=== PATIENT | male | born 1960 | race African-American/Black ===

== ENCOUNTER 2019-01-25 10:13 | Emergency (ER) | payer OTHER ==
[~2019-01-25] VITALS: Ht 190.5 cm; Wt 81.6 kg
--- NOTE | 2019-01-25 10:14 | NUR ---
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 Called 911 d/t SOB. He is alert, oriented x3, calm and cooperative. Pt has hx of PTSD. Pt took muscle relaxants x 3 last night. Latest BS is 107mg/dL. Placed on bed and gown, son on bedside. Will continue to monitor.
--- NOTE | 2019-01-25 10:25 | NUR ---
ED Nurse Note: Pt hooked on honey grader and blender, VSS, no signs of any respiratory distress. Established IV line on LT AC with 20G. Blood specimen collected, sent to labs. Ready for x-ray. Will continue to monitor.
[2019-01-25 10:30] VITALS: BP 152/86
--- NOTE | 2019-01-25 10:30 | NUR ---
ED Nurse Note: X-Ray done. Pt still on stable condition. Started IV Hyration of 1liter NS, tolerated well.
--- NOTE | 2019-01-25 10:38 | Emergency Room Report ---
History of Present Illness General Chief Complaint: Dyspnea/Respdistress Source: Patient Present Illness HPI 58-year-old male history of polysubstance abuse methamphetamine, PCP history of PTSD presents with dyspnea that started just prior to arrival, patient was walking to the door, he felt short of breath for less than 30 seconds, resolved without any issues, no aggravating or alleviating factors severity was moderate , never had a stress test and never had a heart attack, no family history of cardiac disease no nausea no vomiting no diaphoresis patient presents for evaluation via EMS Allergies: Coded Allergies: No Known Allergies (Unverified , 01/25/19) Patient History Past Medical History: see triage record Social History: Reports: smoking, drug use - PCP amphetamines Reviewed Nursing Documentation: PMH: Agreed; PSxH: Agreed Nursing Documentation-PMH Past Medical History: No History, Except For Review of Systems All Other Systems: negative except mentioned in HPI Physical Exam Vital Signs Date Time Temp Pulse Resp B/P (MAP) Pulse Ox O2 Delivery O2 Flow Rate FiO2 01/25/19 10:10 97.0 97 15 158/106 (123) 98 Room Air Sp02 EP Interpretation: reviewed, normal General Appearance: well appearing, no apparent distress, alert, other - Currently playing with his child Head: normocephalic, atraumatic Eyes: bilateral eye PERRL, bilateral eye EOMI ENT: uvula midline, moist mucus membranes Neck: supple, thyroid normal, supple/symm/no masses Respiratory: lungs clear, no respiratory distress, no retraction, no accessory muscle use Cardiovascular #1: normal peripheral pulses, regular rate, rhythm, no edema, no gallop, no murmur Gastrointestinal: non tender, soft, no guarding, no rebound Musculoskeletal: normal inspection Neurologic: alert, oriented x3 Psychiatric: mood/affect normal Skin: no rash, warm/dry Medical Decision Making Diagnostic Impression: Primary Impression: Dyspnea Qualified Codes: R06.00 - Dyspnea, unspecified Additional Impression: Cocaine abuse ER Course 58-year-old male presents with atypical dyspnea, he had no chest pain or shortness of breath, he does endorse using drugs, differential diagnosis includes ACS, side effect of drug use, pneumonia Chest x-ray negative, troponin negative, EKG negative Patient has been asymptomatic in the ED playing with his kids Counseled patient about drug use, patient states he will stop using cocaine Disposition home with return precautions Laboratory Tests Test 01/25/19 10:36 01/25/19 10:50 White Blood Count 5.4 K/UL (4.8-10.8) Red Blood Count 4.90 M/UL (4.70-6.10) Hemoglobin 14.3 G/DL (14.2-18.0) Hematocrit 43.7 % (42.0-52.0) Mean Corpuscular Volume 89 FL (80-99) Mean Corpuscular Hemoglobin 29.3 PG (27.0-31.0) Mean Corpuscular Hemoglobin Concent 32.8 G/DL (32.0-36.0) Red Cell Distribution Width 11.8 % (11.6-14.8) Platelet Count 304 K/UL (150-450) Mean Platelet Volume 5.1 FL (6.5-10.1) L Neutrophils (%) (Auto) 47.8 % (45.0-75.0) Lymphocytes (%) (Auto) 39.9 % (20.0-45.0) Monocytes (%) (Auto) 9.4 % (1.0-10.0) Eosinophils (%) (Auto) 1.0 % (0.0-3.0) Basophils (%) (Auto) 1.9 % (0.0-2.0) Sodium Level 144 MMOL/L (136-145) Potassium Level 3.7 MMOL/L (3.5-5.1) Chloride Level 110 MMOL/L (98-107) H Carbon Dioxide Level 25 MMOL/L (21-32) Anion Gap 9 mmol/L (5-15) Blood Urea Nitrogen 19 mg/dL (7-18) H Creatinine 0.9 MG/DL (0.55-1.30) Estimate Glomerular Filtration Rate > 60 mL/min (>60) Glucose Level 91 MG/DL (74-106) Calcium Level 8.6 MG/DL (8.5-10.1) Total Bilirubin 0.4 MG/DL (0.2-1.0) Aspartate Amino Transferase (AST) 26 U/L (15-37) Alanine Aminotransferase (ALT) 29 U/L (12-78) Alkaline Phosphatase 84 U/L (46-116) Troponin I 0.000 ng/mL (0.000-0.056) Pro-B-Type Natriuretic Peptide 33 pg/mL (0-125) Total Protein 8.8 G/DL (6.4-8.2) H Albumin 4.2 G/DL (3.4-5.0) Globulin 4.6 g/dL Albumin/Globulin Ratio 0.9 (1.0-2.7) L Lipase 371 U/L (73-393) Urine Opiates Screen Negative (NEGATIVE) Urine Barbiturates Screen Negative (NEGATIVE) Phencyclidine (PCP) Screen Positive (NEGATIVE) H Urine Amphetamines Screen Negative (NEGATIVE) Urine Benzodiazepines Screen Negative (NEGATIVE) Urine Cocaine Screen Positive (NEGATIVE) H Urine Marijuana (THC) Screen Negative (NEGATIVE) EKG Diagnostic Results EKG Time: 10:08 EP Interpretation: NSR, rate 96, QTc 447, no acute ST elevations, normal axis, Rhythm Strip Diag. Results Rhythm Strip Time: 10:37 EP Interpretation: yes Rate: 88 Rhythm: NSR, no PVC's, no ectopy Chest X-Ray Diagnostic Results Chest X-Ray Diagnostic Results : Chest X-Ray Ordered: Yes # of Views/Limited/Complete: 1 View Indication: Shortness of Breath EP Interpretation: Yes Interpretation: no consolidation, no effusion, no pneumothorax, no acute cardiopulmonary disease Impression: No acute disease Electronically Signed by: Tony Carson MD Last Vital Signs Date Time Temp Pulse Resp B/P (MAP) Pulse Ox O2 Delivery O2 Flow Rate FiO2 01/25/19 10:10 97.0 97 15 158/106 (123) 98 Room Air Disposition: HOME, SELF-CARE Condition: Stable Referrals: [facility] [place] [facility] Patient Instructions: Shortness of Breath, [id number], Stimulant Use Disorder -Cocaine Additional Instructions: The patient was provided with discharge instructions, notified to follow-up with a primary care doctor and or specialist in the next 24-48 hours, and to return to the ED if they have worsening of their symptoms. Please note that this report is being documented using [employer] technology. This can lead to erroneous entry secondary to incorrect interpretation by the dictating instrument. PLEASE OBTAIN OUTPATIENT STRESS TEST FOLLOW-UP WITH Tony Fermin MD Jan 25, 2019 10:38
--- NOTE | 2019-01-25 10:50 | NUR ---
ED Nurse Note: Pt able to urinate. Urine speciment obtained, sent to labs.
[2019-01-25 11:10] LABS: ANION GAP 9 mmol/L (5-15); BLOOD UREA NITROGEN 19 mg/dL (7-18); CALCIUM 8.6 MG/DL (8.5-10.1); CARBON DIOXIDE 25 MMOL/L (21-32); CHLORIDE 110 MMOL/L (98-107); CREATININE 0.9 MG/DL (0.55-1.30); POTASSIUM 3.7 MMOL/L (3.5-5.1); SODIUM 144 MMOL/L (136-145)
--- NOTE | 2019-01-25 11:15 | NUR ---
ED Nurse Note: Pt still on stable condition, on bed awake, calm and cooperative, with son on bedside. Still on IV hydration, infusing well. VSS, denied pain. Will continue to monitor.
[2019-01-25 11:19] LABS: ALANINE AMINOTRANSFERASE 29 U/L (12-78); ALBUMIN 4.2 G/DL (3.4-5.0); ALBUMIN/GLOBULIN RATIO 0.9 (1.0-2.7); ALKALINE PHOSPHATASE 84 U/L (46-116); ASPARTATE AMINO TRANSFERASE 26 U/L (15-37); BILIRUBIN,TOTAL 0.4 MG/DL (0.2-1.0)
[2019-01-25 11:20] VITALS: BP 152/98
[2019-01-25 11:26] LABS: BASOPHILS % (AUTO) 1.9 % (0.0-2.0); HEMATOCRIT 43.7 % (42.0-52.0); HEMOGLOBIN 14.3 G/DL (14.2-18.0); LYMPHOCYTES % (AUTO) 39.9 % (20.0-45.0); MEAN CORPUSCULAR VOLUME 89 FL (80-99); MONOCYTES % (AUTO) 9.4 % (1.0-10.0); NEUTROPHILS % (AUTO) 47.8 % (45.0-75.0); PLATELET COUNT 304 K/UL (150-450); RED CELL DISTRIBUTION WIDTH 11.8 % (11.6-14.8); WHITE BLOOD COUNT 5.4 K/UL (4.8-10.8)
--- NOTE | 2019-01-25 11:34 | Diagnostic Imaging Report ---
EXAM: XR Chest, 1 View CLINICAL HISTORY: CP TECHNIQUE: Frontal view of the chest. COMPARISON: No relevant prior studies available. FINDINGS: Lungs: Unremarkable. No consolidation. Pleural space: Unremarkable. No pneumothorax. Heart: Unremarkable. No cardiomegaly. Mediastinum: Unremarkable. Bones/joints: Unremarkable. IMPRESSION: Normal chest x-ray.
--- NOTE | 2019-01-25 12:35 | NUR ---
ER DISCHARGE NOTE: Pt is cleared to be discharge per ERMD. Pt is alert oriented x 4, on room air. No signs of respiratory distress. VSS, denied pain. Pt was given with prescriptions instructions, was able verbalize understanding. Pt id band and iv site removed without complications. Pt was able to ambulate with steady gait wih child. Pt took all belongings.
[2019-01-25 12:51] VITALS: BP 152/96
--- NOTE | 2019-01-26 19:21 | Cardiology Report ---
APPROVED REPORT EKG Measurement Heart [id number] Normal sinus rhythm Nonspecific ST and T wave abnormality Abnormal ECG
== END 2019-01-25 12:35 | disposition home or self-care (01) ==
LOC: EDBD 10:13 → EMR 11:00
DX: R06.00 Dyspnea, unspecified (principal); F14.10 Cocaine abuse, uncomplicated; F17.200 Nicotine dependence, unspecified, uncomplicated
CPT/HCPCS: 36415; 71045; 80053; 80307; 83690; 83880; 84484; 85025; 93005; 96360; Z7502; 99284